=== PATIENT | female | born 1985 | race African-American/Black ===

== ENCOUNTER 2019-03-16 16:01 | Emergency (ER) | payer OTHER ==
[~2019-03-16] VITALS: Ht 157.5 cm; Wt 99.3 kg
[~2019-03-16 16:01] MED LIST: MACROBID 100 M100 M1 PO
[2019-03-16 16:34] LABS: ABSOLUTE NEUTROPHILS 10.6 thou/uL (1.4-8.2); BASOPHILS 1.1 % (0.0-2.0); EOSINOPHILS 0.8 % (0.0-3.0); HEMATOCRIT 36.6 % (37.0-47.0); HEMOGLOBIN 12.6 gm/dL (12.0-15.0); LYMPHOCYTES 12.8 % (24.0-44.0); MCH 31.1 pg (26.0-34.0); MCHC 34.4 g/dL (28.0-37.0); MCV 90.6 fL (80.0-100.0); MONOCYTES 6.4 % (1.0-8.0); PLATELET COUNT 299 thou/uL (150-400); POLYS 78.9 % (36.0-66.0); RBC 4.03 mil/uL (4.20-5.00); RDW 12.5 % (10.5-14.5); WBC 13.4 thou/uL (4.0-11.0)
[2019-03-16 16:38] LABS: CALCIUM 9.5 mg/dL (8.5-10.1); CREATININE 0.8 mg/dL (0.6-1.0); POTASSIUM 3.4 mmol/L (3.5-5.1)
[2019-03-16 16:44] LABS: ALBUMIN 3.4 g/dL (3.4-5.0); TOTAL BILIRUBIN 0.9 mg/dL (<0.1-1.0); TOTAL PROTEIN 8.3 g/dL (6.4-8.2)
[2019-03-16] MEDS ORDERED: BACTRIM DS TAB1 EACH PO (19:39)
[2019-03-16] MEDS ORDERED: KEFLEX500 M1 PO (19:39)
[2019-03-16 21:00] VITALS: BP 133/69
--- NOTE | 2019-03-18 18:58 | EKG ---
[place] [address] [address] [facility] [employer] [address] ELECTROCARDIOGRAM REPORT Name: LESLIE POTTER Room [facility]in[facility]in[facility] [id number] Admission: 03/16/19 Attend Phys: Discharge: 03/16/19 Date of : 87 Report #: [id number] THIS REPORT FOR: //name// [facility] ED Test Date: 2019-03-16 Test Time: 16:49:47 Pat Name: LESLIE POTTER Department: Room: Gender: F Surgical Orderly: jngum : 1985 Requested By: Jodie Moore Order Number: [id number] MD: David Ruby Measurements Intervals [place] Rate: 131 P: 63 MO: 143 QRS: 31 QRSD: 81 T: -27 QT: 302 QTc: 446 Interpretive Statements Sinus tachycardia Nonspecific ST and T wave abnormality No previous ECG available for comparison Electronically Signed On 03-18-2019 18:58:33 IT NETWORK ADMINISTRATOR by David Ruby [email or web address] <ELECTRONICALLY SIGNED> By: David Ruby MD, [facility] 03/18/19 1858 [id number] David Ruby MD, FACC /EPI
== END 2019-03-16 21:00 | disposition left against medical advice (07) ==
LOC: ER 16:01
PROVIDERS: Physician Assistant
DX: L03.312 Cellulitis of back [any part except buttock and flank] (principal); R50.9 Fever, unspecified; R00.0 Tachycardia, unspecified; I10 Essential (primary) hypertension